=== PATIENT | male | born 1980 | race Caucasian/White ===

== ENCOUNTER 2017-11-03 15:49 | Emergency (ER) | payer OTHER ==
[2017-11-03 16:03] VITALS: BP 134/79
--- NOTE | 2017-11-03 16:09 | EDPHY ---
H & P Stated Complaint: Sking avulsion tuesday on L index. Redness traveling up his arm. Time Seen by Provider: 11/03/17 16:08 HPI/ROS: CHIEF COMPLAINT: Left upper extremity infection HISTORY OF PRESENT ILLNESS: The patient presents to the ED with spreading lymphangitis involving the left upper extremity. He injured his finger on Tuesday and has developed some lymphangitis streaking up his arm. The patient denies significant pain. He denies any numbness or weakness. The patient denies prior history of significant soft tissue infection. REVIEW OF SYSTEMS: A comprehensive 10 point review of systems is otherwise negative aside from elements mentioned in the history of present illness. Source: Patient Exam Limitations: No limitations - Personal History Current Tetanus/Diphtheria Vaccine: Yes Current Tetanus Diphtheria and Acellular Pertussis (TDAP): Yes Tetanus Vaccine Date: 2017 - Medical/Surgical History Hx Asthma: No Hx Chronic Respiratory Disease: No Hx Diabetes: No Hx Cardiac Disease: No Hx Renal Disease: No Hx Cirrhosis: No Hx Alcoholism: No Hx HIV/AIDS: No Hx Splenectomy or Spleen Trauma: No Other PMH: denies - Social History Smoking Status: Never smoked - Physical Exam Exam: General Appearance: [Alert, no distress] Eyes: [Pupils equal and round no pallor or injection] ENT, Mouth: [Mucous membranes moist] Respiratory: [There are no retractions, lungs are clear to auscultation] Cardiovascular: [Regular rate and rhythm] Gastrointestinal: [Abdomen is soft and nontender, no masses, bowel sounds normal] Neurological: [A&O, normal motor function, normal sensory exam, normal cranial nerves] Skin: [Warm and dry, no rashes] Musculoskeletal: [Neck is supple nontender] Extremities: [symmetrical, full range of motion] Psychiatric: [Patient is oriented X 3, there is no agitation] Constitutional: Initial Vital Signs Temperature (C) 36.7 C 11/03/17 15:55 Heart Rate 95 11/03/17 15:55 Respiratory Rate 16 11/03/17 15:55 Blood Pressure 134/79 H 11/03/17 15:55 O2 Sat (%) 99 11/03/17 15:55 O2 Delivery Mode Room Air Allergies/Adverse Reactions: Penicillins Allergy (Verified 11/03/17 15:59) Home Medications: Medication Instructions Recorded NK [No Known Home Meds] 11/03/17 Departure - Departure Referrals: Aron Mesa DO [Primary Care Provider] - As per Instructions
--- NOTE | 2017-11-03 16:25 | EDPHY ---
H & P Stated Complaint: Sking avulsion tuesday on L index. Redness traveling up his arm. Time Seen by Provider: 11/03/17 16:08 HPI/ROS: CHIEF COMPLAINT: Infection left finger HISTORY OF PRESENT ILLNESS: 37-year-old immunocompetent male, right-hand dominant, states that 4 days ago he sustained an accidental abrasion to his left 2nd digit PIP joint dorsal aspect. He saw his primary care provider today because he noted erythema at this area and was recommended to go to the ER because of lymphangitic streaking extending to his left bicep. He has had full pain-free range of motion of the left finger. She denies fever or chills. His tetanus was updated in the office today. No flu-like symptoms. REVIEW OF SYSTEMS: 10 systems reviewed and negative with the exception of the elements mentioned in the history of present illness PAST MEDICAL & SURGICAL HISTORY: no history of immunosuppressed or immunocompromised condition SOCIAL HISTORY:Nonsmoker. PHYSICAL EXAM (Prior to examination, patient consented to physical exam, hands were washed and my usual and customary physical exam procedures followed) 1) GENERAL: Well-developed, well-nourished, alert and oriented. Appears to be in no acute distress. Smiling appears well 2) HEAD: Normocephalic, atraumatic 3) HEENT: Pupils equal, round, reactive to light bilaterally. Sclera anicteric. 4) NECK: Full range of motion, no meningeal signs. 5) LUNGS: Clear auscultation bilaterally, no wheezes, no rhonchi, no retractions. 6) HEART: Regular rate and rhythm, no murmur, no heave, no gallop. 7) ABDOMEN: No guarding, no rebound, no focal tenderness, 8) MUSCULOSKELETAL: Left upper extremity: Granulating abrasion to the left 2nd digit PIP joint dorsal aspect. Ecchymosis noted. Negative kanavel sign. Lymphangitic streaking extending on the left upper extremity to mid bicep, minimally perceptible. No crepitus. Brisk pulses. No pain with axial loading of the PIP joint or other joint space. No effusion. Full pain-free range of motion of the left 2nd digit. No pain along the flexor tendon sheath. 9) BACK: No visual or palpable abnormality. 10) SKIN: No rash, no petechiae. 11) Psychiatric: Patient is oriented X 3, there is no agitation. DIFFERENTIAL DIAGNOSIS: In no particular order including but not limited to infectious tenosynovitis, traumatic arthrotomy of the PIP joint, cellulitis - Personal History Current Tetanus/Diphtheria Vaccine: Yes Current Tetanus Diphtheria and Acellular Pertussis (TDAP): Yes Tetanus Vaccine Date: 2017 - Medical/Surgical History Hx Asthma: No Hx Chronic Respiratory Disease: No Hx Diabetes: No Hx Cardiac Disease: No Hx Renal Disease: No Hx Cirrhosis: No Hx Alcoholism: No Hx HIV/AIDS: No Hx Splenectomy or Spleen Trauma: No Other PMH: denies - Social History Smoking Status: Never smoked Constitutional: Initial Vital Signs Temperature (C) 36.7 C 11/03/17 15:55 Heart Rate 95 11/03/17 15:55 Respiratory Rate 16 11/03/17 15:55 Blood Pressure 134/79 H 11/03/17 15:55 O2 Sat (%) 99 11/03/17 15:55 O2 Delivery Mode Room Air Allergies/Adverse Reactions: Penicillins Allergy (Verified 11/03/17 15:59) Home Medications: Medication Instructions Recorded Cephalexin [Keflex] 500 mg PO TID 10 Days cap 11/03/17 Sulfamethox/Tmp 800/160 mg 1 tab PO BID@1000,2200 10 Days tab 11/03/17 [Bactrim Ds] Medical Decision Making - Diagnostics Imaging Results: Imaging Impressions Finger X-Ray 11/03/17 16:19 Impression: Negative radiographs of the left index finger. . Images reviewed myself ED Course/Re-evaluation: 4:24 p.m.: I have recommended x-ray, check basic laboratory studies, dose of IV Ancef. He has no history of chronic or recurrent skin infection. He has a listed penicillin allergy but states that he he was told this by his mother and is unsure whether he has a allergy or not. His tetanus was updated earlier in the office of his PCP today. I think that infectious tenosynovitis is less than likely this patient. Doubt sepsis. 4:45 p.m.: I reviewed the patient's laboratory studies including normal white blood cell count, x-ray showing no signs of osteomyelitis or fracture. He is noted to have lymphangitic streaking extending to his bicep. Doubt infectious tenosynovitis. I think that he can be treated on outpatient basis when his IV Ancef is completed, recommend Keflex and Bactrim, elevation, close follow-up. Definitely if he develops constitutional symptoms such as fever, chills, flu- like symptoms I recommend he return to the ER immediately for re-evaluation. He feels comfortable with this plan. I saw this patient independently based on established practice protocols. Care of patient under supervision of primary supervising physician Dr Noble with whom I discussed case. - Data Points Laboratory Results: Laboratory Results 11/03/17 16:17 11/03/17 16:17 11/03/17 11/03/17 16:17 16:17 WBC 8.81 10^3/uL 10^3/uL (3.80-9.50) RBC 4.82 10^6/uL 10^6/uL (4.40-6.38) Hgb 14.5 g/dL g/dL (13.7-17.5) Hct 41.7 % % (40.0-51.0) MCV 86.5 fL fL (81.5-99.8) MCH 30.1 pg pg (27.9-34.1) MCHC 34.8 g/dL g/dL (32.4-36.7) RDW 12.2 % % (11.5-15.2) Plt Count 168 10^3/uL 10^3/uL (150-400) MPV 10.1 fL fL (8.7-11.7) Neut % (Auto) 63.9 % % (39.3-74.2) Lymph % (Auto) 24.7 % % (15.0-45.0) [place] % (Auto) 8.5 % % (4.5-13.0) Eos % (Auto) 2.5 % % (0.6-7.6) Baso % (Auto) 0.3 % % (0.3-1.7) Nucleat RBC Rel Count 0.0 % % (0.0-0.2) Absolute Neuts (auto) 5.62 10^3/uL 10^3/uL (1.70-6.50) Absolute Lymphs (auto) 2.18 10^3/uL 10^3/uL (1.00-3.00) Absolute Monos (auto) 0.75 10^3/uL 10^3/uL (0.30-0.80) Absolute Eos (auto) 0.22 10^3/uL 10^3/uL (0.03-0.40) Absolute Basos (auto) 0.03 10^3/uL 10^3/uL (0.02-0.10) Absolute Nucleated RBC 0.00 10^3/uL 10^3/uL (0-0.01) Immature Gran % 0.1 % % (0.0-1.1) Immature Gran # 0.01 10^3/uL 10^3/uL (0.00-0.10) Sodium 138 mEq/L mEq/L (135-145) Potassium 4.0 mEq/L mEq/L (3.3-5.0) Chloride 103 mEq/L mEq/L (97-110) Carbon Dioxide 26 mEq/l mEq/l (22-31) Anion Gap 9 mEq/L mEq/L (8-16) BUN 14 mg/dL mg/dL (7-23) Creatinine 0.7 mg/dL mg/dL (0.7-1.3) Estimated GFR > 60 Glucose 87 mg/dL mg/dL (70-100) Calcium 9.3 mg/dL mg/dL (8.5-10.4) Medications Given: Discontinued Medications Cefazolin Sodium/Dextrose (Ancef 1 Gm (Premix)) 50 mls @ 200 mls/hr IV EDNOW ONE PRN Reason: Protocol Stop: 11/03/17 16:33 Last Admin: 11/03/17 16:33 Dose: 50 mls Departure - Departure Disposition: Home, Routine, Self-Care Clinical Impression: Abrasion of finger, left, infected Qualifiers: Encounter type: initial encounter Qualified Code(s): S60.419A - Abrasion of unspecified finger, initial encounter Condition: Good Instructions: Abrasion (ED) Additional Instructions: Return to the ER if you develop redness, swelling, discharge, warmth to the wound, limitations in range of motion, fever, chills or any other symptoms that concern you. Referrals: Aron Mesa DO [Primary Care Provider] - 1-2 days without fail Prescriptions: Cephalexin [Keflex] 500 mg PO TID 10 Days cap Sulfamethox/Tmp 800/160 mg [Bactrim Ds] 1 tab PO BID@1000,2200 10 Days tab
[2017-11-03 16:30] LABS: PLATELET COUNT 168 10^3/uL (150-400)
== END 2017-11-03 16:55 | disposition home or self-care (01) ==
DX: S60.411A Abrasion of left index finger, initial encounter (principal); X58.XXXA Exposure to other specified factors, initial encounter; Y92.9 Unspecified place or not applicable
CPT/HCPCS: 96365; J0690